=== PATIENT | male | born 1985 | race African-American/Black ===

== ENCOUNTER 2018-01-25 11:05 | Emergency (ER) | payer SELFPAY | END 2018-01-25 11:57 | disposition home or self-care (01) | LOC: FTE 11:57 | DX: S68.123A Partial traumatic metacarpophalangeal amputation of left middle finger, initial encounter (principal); W26.0XXA Contact with knife, initial encounter; Y92.9 Unspecified place or not applicable | CPT/HCPCS: 99282 ==